=== PATIENT | male | born 1990 | race Caucasian/White ===

== ENCOUNTER 2021-04-27 08:00 | Outpatient (CLI) | payer OTHER | END 2021-04-27 08:30 | disposition home or self-care (01) | LOC: PPH VACUNA 08:00 | DX: Z23 Encounter for immunization (principal) ==

== ENCOUNTER 2021-05-18 08:00 | Outpatient (CLI) | payer OTHER | END 2021-05-18 08:30 | disposition home or self-care (01) | LOC: PPH VACUNA 08:00 | DX: Z23 Encounter for immunization (principal) ==

== ENCOUNTER 2021-05-24 19:11 | Emergency (ER) | payer OTHER ==
[~2021-05-24] VITALS: Ht 175.3 cm; Wt 79.4 kg
[2021-05-24] MEDS ORDERED: TOPROL XL25 M1 (19:29)
[2021-05-24] MEDS ORDERED: CLONAZEPAM1 MG (19:29)
[2021-05-24] MEDS ORDERED: CIPRO500 MG PO (22:17)
[2021-05-24] MEDS ORDERED: PEPCID AC20 MG PO (22:17)
== END 2021-05-24 23:06 | disposition home or self-care (01) ==
LOC: ER 19:11
DX: R19.7 Diarrhea, unspecified (principal)

== ENCOUNTER 2021-12-16 08:00 | Outpatient (CLI) | payer OTHER ==
[~2021-12-16 08:00] MED LIST: CIPRO500 MG PO; CLONAZEPAM1 MG; PEPCID AC20 MG PO; TOPROL XL25 M1
== END 2021-12-16 08:30 | disposition home or self-care (01) ==
LOC: PPH VACUNA 08:00
PROVIDERS: ATTEND Emergency Medicine Pediatric Emergency Medicine
DX: Z23 Encounter for immunization (principal)